=== PATIENT | male | born 1995 | race Caucasian/White ===

== ENCOUNTER 2016-11-29 12:25 | Emergency (ER) | payer SELFPAY ==
[~2016-11-29] VITALS: Ht 182.9 cm; Wt 66.3 kg
[~2016-11-29 12:25] MED LIST: BACT800T5 PO; CEFU1TAB20 PO
[2016-11-29 12:35] VITALS: BP 116/84; PULSE 94; RESP 18; TEMP 98.2; O2SAT 98
--- NOTE | 2016-11-29 13:38 | PD ---
HPI Chief Complaint: Bite or Sting Time Seen by Provider: 13:29 Travel History International Travel<30 days: No Contact w/Intl Traveler<30days: No Traveled to known affect area: No History of Present Illness HPI 21-year-old male presents to the ED for evaluation 3 day history of pain, redness and swelling of the left elbow. Gradual onset. Patient endorses subjective fevers, has not measured temperature at home. He denies numbness, tingling, weakness, limited just to range of motion of the extremity. He denies previous history of MRSA. Denies chronic health problems, takes no daily medications. NKDA. PFSH Past Medical History Asthma: Yes Cancer: No Cardiovascular Problems: No Cystic Fibrosis: No Developmental Delay: No Diabetes: No Diminished Hearing: No Gastrointestinal Disorders: No Genitourinary: No Headaches: No Heparin Induced Thrombocytopen: No Musculoskeletal: No Neurologic: No Psychiatric: No Respiratory: Yes Immunizations Current: Yes Seizures: No Sickle Cell Disease: No Sleep Apnea: No PNEUMOCCOCAL Vaccine (Year): 1 Past Surgical History Tonsillectomy: Yes (T & A) Other Surgery: Yes (Tonsilectomy) Social History Alcohol Use: No (DENIES) Tobacco Use: No (FORMER) Substance Use: Yes (DENIES AT PRESENT) Allergies-Medications (Allergen,Severity, Reaction): Coded Allergies: Penicillin (Verified Allergy, Severe, ALL OF FAMILY IS ALLERGIC, 11/29/16) Reported Meds & Prescriptions Reported Meds & Active Scripts Active Ibuprofen 800 Mg Tab 800 Mg PO Q8H PRN Clindamycin (Clindamycin HCl) 300 Mg Cap 300 Mg PO TID Review of Systems Except as stated in HPI: all other systems reviewed are Neg Physical Exam Narrative GENERAL: Well-nourished, well-developed white male in no acute distress. SKIN: Warm and dry. SKIN: There is an indurated area in the left elbow which measures about 4 cm in diameter. It is fluctuant but there is no pointing or drainage. There is a zone of inflammation around it but no lymphangitis. HEAD: Normocephalic. EYES: No scleral icterus. No injection or drainage. NECK: Supple, trachea midline. No JVD or lymphadenopathy. CARDIOVASCULAR: Regular rate and rhythm without murmurs, gallops, or rubs. RESPIRATORY: Breath sounds equal bilaterally. No accessory muscle use. GASTROINTESTINAL: Abdomen soft, non-tender, nondistended. MUSCULOSKELETAL: No cyanosis, or edema. No limitations to motion or deficits of strength of the left upper extremity. Neurovascularly intact. BACK: Nontender without obvious deformity. No CVA tenderness. Data Data Last Documented VS Vital Signs Date Time Temp Pulse Resp B/P Pulse Ox O2 Delivery O2 Flow Rate FiO2 11/29/16 14:39 88 16 99 11/29/16 12:35 98.2 116/84 Orders Abscess Culture And Gram Stain (11/29/16 13:38) Lidocai-Epi 1%-1:100,000 Inj (Xylocaine- (11/29/16 13:45) Clindamycin Inj (Cleocin Inj) (11/29/16 13:45) Ibuprofen (Motrin) (11/29/16 13:45) MDM Medical Decision Making Medical Screen Exam Complete: Yes Emergency Medical Condition: Yes Differential Diagnosis Folliculitis versus abscess versus cellulitis versus sepsis versus other Narrative Course 21-year-old male presents to the ED for evaluation 3 day history of pain, redness and swelling of the left elbow. Gradual onset. Patient endorses subjective fevers, has not measured temperature at home. He denies numbness, tingling, weakness, limited just to range of motion of the extremity. He denies previous history of MRSA. Vitals reviewed. Physical exam consistent with abscess of the medial aspect of the right elbow. Abscess I&D was performed. Please see my procedure note for details. Patient was administered 600 mg clindamycin IM and 800 mg ibuprofen. He is prescribed clindamycin 300 mg 3 times a day 7 days and a short course of anti-inflammatory medications. He is instructed to return in 2 days for packing removal and wound evaluation, take antibiotics as prescribed, follow up with the primary care provider. He indicated understanding of the instructions and is amenable to plan of care. He stable and discharged home. Diagnosis Primary Impression: Abscess Referrals: Primary Care Physician Patient Instructions: Abscess Incision and Drainage (ED), General Instructions Additional Instructions: Rest, hydrate. Do not change the dressing unless it becomes soiled or wet. . You may bathe normally. Do not submerge the wound. Return to the ED in 2 days for packing removal and evaluation of wound. Take the antibiotics as they are prescribed, even if your symptoms resolved during the course of treatment. Utilize 800 mg ibuprofen as prescribed, as needed for pain. Return to the ED for any urgent or emergent medical condition. Med/Other Pt SpecificInfo: Prescription(s) given Scripts Ibuprofen 800 Mg [id number] Mg PO Q8H PRN (Pain/Inflammation) #15 TAB Ref 0 Prov:Chad Frasuto MD 11/29/16 Clindamycin 300 Mg [id number] Mg PO TID #21 CAP Ref 0 Prov:Chad Frausto MD 11/29/16 Disposition: 01 DISCHARGE HOME Condition: Stable Heather Fuller Nov 29, 2016 13:38
[2016-11-29] MEDS ORDERED: CLIN1CAP6 PO (13:42)
[2016-11-29] MEDS ORDERED: IBUP800T23 PO (13:42)
[2016-11-29] MEDS ORDERED: CLINDAMYCIN PHOS 600 MG/4 ML VIAL IM ONE (13:45)
[2016-11-29] MEDS ORDERED: IBUPROFEN 800 MG TAB PO ONE (13:45)
[2016-11-29] MEDS ORDERED: LIDOCAINE 1%/EPINEPHrine 1:100,000 SOLN 20 ML VIAL INFIL ONE (13:45)
[2016-11-29 14:38] VITALS: RESP 16
== END 2016-11-29 14:40 | disposition home or self-care (01) ==
LOC: PHED 12:25 → PHEFT 14:40
DX: L02.414 Cutaneous abscess of left upper limb (principal); B95.61 Methicillin susceptible Staphylococcus aureus infection as the cause of diseases classified elsewhere
CPT/HCPCS: 10061; 86403; 87070; 87186; 87205; 96372

== ENCOUNTER 2016-12-01 13:21 | Emergency (ER) | payer SELFPAY ==
[~2016-12-01] VITALS: Ht 180.3 cm; Wt 66.0 kg
[~2016-12-01 13:21] MED LIST changes: -BACT800T5 PO; -CEFU1TAB20 PO; +CLIN1CAP6 PO; +IBUP800T23 PO
[2016-12-01 13:28] VITALS: BP 136/60; PULSE 76; RESP 16; TEMP 98.5; O2SAT 99
--- NOTE | 2016-12-01 14:03 | PD ---
HPI Chief Complaint: Wound/Suture/Staple Re-Check Time Seen by Provider: 14:02 Travel History International Travel<30 days: No Contact w/Intl Traveler<30days: No Traveled to known affect area: No History of Present Illness HPI 21-year-old male that presents to the ED for evaluation of wound recheck. Patient was seen here 2 days ago for evaluation of the abscess on his left elbow. Patient having seizures and drainage. Patient has an compliant with medications. Patient had packing in place and was told to come here. He states that for the most part the symptoms seem to be improving but he came here for recheck as he was told to do this. He states that his pain currently is 4 out of 10. Patient denies any fevers chills or sweats. No new symptoms. Pain stays mainly on the area of the abscess. Allergy to penicillin. States compliance with medications given. PFSH Past Medical History Asthma: Yes Cancer: No Cardiovascular Problems: No Cystic Fibrosis: No Developmental Delay: No Diabetes: No Diminished Hearing: No Gastrointestinal Disorders: No Genitourinary: No Headaches: No Heparin Induced Thrombocytopen: No Musculoskeletal: No Neurologic: No Psychiatric: No Respiratory: Yes (asthma) Immunizations Current: Yes Seizures: No Sickle Cell Disease: No Sleep Apnea: No PNEUMOCCOCAL Vaccine (Year): 1 Past Surgical History Tonsillectomy: Yes (T & A) Other Surgery: Yes (Tonsilectomy) Social History Alcohol Use: No (DENIES) Tobacco Use: No (FORMER) Substance Use: Yes (DENIES AT PRESENT) Allergies-Medications (Allergen,Severity, Reaction): Coded Allergies: Penicillin (Verified Allergy, Severe, ALL OF FAMILY IS ALLERGIC, 12/01/16) Reported Meds & Prescriptions Reported Meds & Active Scripts Active Ibuprofen 800 Mg Tab 800 Mg PO Q8H PRN Clindamycin (Clindamycin HCl) 300 Mg Cap 300 Mg PO TID Review of Systems Except as stated in HPI: all other systems reviewed are Neg Physical Exam Narrative GENERAL: SKIN: Warm and dry. HEAD: Atraumatic. Normocephalic. EYES: Pupils equal and round. No scleral icterus. No injection or drainage. ENT: No nasal bleeding or discharge. Mucous membranes pink and moist. Tongue is midline. No uvula deviation. NECK: Trachea midline. No JVD. CARDIOVASCULAR: Regular rate and rhythm. RESPIRATORY: No accessory muscle use. Clear to auscultation. Breath sounds equal bilaterally. GASTROINTESTINAL: Abdomen soft, non-tender, nondistended. Hepatic and splenic margins not palpable. MUSCULOSKELETAL: Extremities without clubbing, cyanosis, or edema. No obvious deformities. Full range of motion of the upper extremities bilaterally. Full range of motion of left upper extremity. Patient has a open abscess that was drained with packing in place on the left medial elbow. Yellow discharge coming out of it. Slightly tender to touch. Some erythema noted. per patient improved. 2+ pulses bilaterally. Neurovascular intact. NEUROLOGICAL: Awake and alert. No obvious cranial nerve deficits. Motor grossly within normal limits. Five out of 5 muscle strength in the arms and legs. Normal speech. PSYCHIATRIC: Appropriate mood and affect; insight and judgment normal. Data Data Last Documented VS Vital Signs Date Time Temp Pulse Resp B/P Pulse Ox O2 Delivery O2 Flow Rate FiO2 12/01/16 13:28 98.5 76 16 136/60 99 MDM Medical Decision Making Medical Screen Exam Complete: Yes Emergency Medical Condition: Yes Medical Record Reviewed: Yes Differential Diagnosis Abscess versus wound care versus packing removal Narrative Course 21-year-old male that presents to the ED for evaluation of abscess. Patient was properly examined and was found to have signs and symptoms consistent with wound recheck. Packing was removed by me. Patient tolerated procedure well. New dressing was applied. No new packing recommend at this time. Patient does have some drainage still. I recommend that he continue taking antibiotics. Follow with PCP. See ED for any worsening symptoms. Diagnosis Primary Impression: Abscess Patient Instructions: General Instructions Additional Instructions: Continue medications prescribed to you on your last visit. See ED for worsening symptoms. Warm compresses. Recheck in 7 days if no improvement at all, otherwise follow-up with your doctor. Med/Other Pt SpecificInfo: No Change to Meds, Wound Care Disposition: DISCHARGE HOME Condition: Stable Luis Miguel Matson Dec 01, 2016 14:03
== END 2016-12-01 14:14 | disposition home or self-care (01) ==
LOC: PHEFT 13:21
DX: L02.414 Cutaneous abscess of left upper limb (principal); Z87.09 Personal history of other diseases of the respiratory system; Z87.891 Personal history of nicotine dependence
CPT/HCPCS: 99281

== ENCOUNTER 2017-01-27 11:48 | Emergency (ER) | payer SELFPAY ==
[~2017-01-27] VITALS: Ht 180.3 cm; Wt 62.0 kg
[2017-01-27 11:54] VITALS: BP 125/82; PULSE 80; RESP 16; TEMP 98.3; O2SAT 98
--- NOTE | 2017-01-27 12:28 | PD ---
HPI Chief Complaint: Wound/Suture/Staple Re-Check Time Seen by Provider: 12:05 Travel History International Travel<30 days: No Contact w/Intl Traveler<30days: No Traveled to known affect area: No History of Present Illness HPI 21 year-old male presents to the emergency room requesting a work note to clear him of his left elbow infection that he had 2 months ago. Patient had an abscess on the left elbow which grew out a staph infection for which he was treated with clindamycin. He was compliant with medication and states he has had no recurrence of symptoms since then. He just needs a note to go back to work that states his infection and symptoms are resolved and he is able to work. History Past Medical Histgory Hx Cancer: No Social History Alcohol Use: No (DENIES) Tobacco Use: No (FORMER) Allergies-Medications (Allergen,Severity, Reaction): Coded Allergies: Penicillin (Verified Allergy, Severe, ALL OF FAMILY IS ALLERGIC, 01/27/17) Reported Meds & Prescriptions Reported Meds & Active Scripts Active No Active Prescriptions or Reported Medications Review of Systems Except as stated in HPI: all other systems reviewed are Neg Physical Exam Narrative GENERAL: Well-nourished, well-developed male in no acute distress. Afebrile. Ambulatory. SKIN: Focused skin assessment warm/dry. No erythema, ecchymosis, or edema of the left elbow. There is a small scab that is almost healed without drainage. HEAD: Normocephalic. EYES: No scleral icterus. No injection or drainage. NECK: Supple, trachea midline. No JVD or lymphadenopathy. CARDIOVASCULAR: Regular rate and rhythm without murmurs, gallops, or rubs. RESPIRATORY: Breath sounds equal bilaterally. No accessory muscle use. MUSCULOSKELETAL: No cyanosis, or edema. 2+ radial pulse and full range of motion of the left upper extremity. Data Data Last Documented VS Vital Signs Date Time Temp Pulse Resp B/P Pulse Ox O2 Delivery O2 Flow Rate FiO2 01/27/17 11:54 98.3 80 16 125/82 98 MDM Medical Screen Exam Complete: Yes Emergency Medical Condition: No Differential Diagnosis Medical clearance versus infection versus abscess Narrative Course 21 year-old male presents to the emergency room requesting a note to return to work after having a left elbow abscess 2 months ago. Primary Impression: Encounter for medical screening examination Scripts No Active Prescriptions or Reported Meds Disposition: 01 DISCHARGE HOME Condition: Stable Katharine Galvan January 27, 2017 12:28
== END 2017-01-27 12:28 | disposition left against medical advice (07) ==
LOC: PHEFT 11:48
DX: Z51.89 Encounter for other specified aftercare (principal); Z88.0 Allergy status to penicillin; Z87.891 Personal history of nicotine dependence
CPT/HCPCS: 99281

== ENCOUNTER 2017-08-30 11:36 | Emergency (ER) | payer SELFPAY ==
[~2017-08-30] VITALS: Ht 180.3 cm; Wt 70.0 kg
[2017-08-30 11:39] VITALS: BP 141/68; PULSE 89; RESP 16; TEMP 98.5; O2SAT 98
[2017-08-30] MEDS ORDERED: LIDOCAINE HCL 1% 50 ML VIAL INFIL ONE (12:30)
--- NOTE | 2017-08-30 12:55 | PD ---
HPI Chief Complaint: Skin Problem Time Seen by Provider: 12:26 Travel History International Travel<30 days: No Contact w/Intl Traveler<30days: No Traveled to known affect area: No History of Present Illness HPI 22-year-old male patient presents to the ER today with several days' history of right buttocks area pain, swelling, tenderness getting worse in the last few days. He denies any significant abdominal pain, pain with bowel movements, fevers, or any other symptoms. Modifying Factors: None Associated Signs & Symptoms: Buttocks area pain, swelling Risk Factors: None PFSH Past Medical History Asthma: Yes Cancer: No Cardiovascular Problems: No Cystic Fibrosis: No Developmental Delay: No Diabetes: No Diminished Hearing: No Gastrointestinal Disorders: No Genitourinary: No Headaches: No Heparin Induced Thrombocytopen: No Musculoskeletal: No Neurologic: No Psychiatric: No Respiratory: Yes (asthma) Immunizations Current: Yes Seizures: No Sickle Cell Disease: No Sleep Apnea: No Tetanus Vaccination: Unknown Influenza Vaccination: No PNEUMOCCOCAL Vaccine (Year): 1 Past Surgical History Tonsillectomy: Yes (T & A) Other Surgery: Yes (Tonsilectomy) Social History Alcohol Use: No (DENIES) Tobacco Use: No (FORMER) Substance Use: Yes Allergies-Medications (Allergen,Severity, Reaction): Coded Allergies: penicillin G (Unverified Allergy, Severe, ALL OF FAMILY IS ALLERGIC, 08/30) Reported Meds & Prescriptions Reported Meds & Active Scripts Active No Active Prescriptions or Reported Medications Review of Systems Except as stated in HPI: all other systems reviewed are Neg Physical Exam Narrative GENERAL: Well-developed young male patient currently in mild distress but awake and oriented 3. SKIN: Focused skin assessment warm/dry. HEAD: Atraumatic. Normocephalic. EYES: Pupils equal and round. No scleral icterus. No injection or drainage. ENT: No nasal bleeding or discharge. Mucous membranes pink and moist. NECK: Trachea midline. No JVD. CARDIOVASCULAR: Regular rate and rhythm. No murmur appreciated. RESPIRATORY: No accessory muscle use. Clear to auscultation. Breath sounds equal bilaterally. GASTROINTESTINAL: Abdomen soft, non-tender, nondistended. Hepatic and splenic margins not palpable. RECTAL EXAM: No rectal masses or tenderness, stool is brown. There is a area of induration, redness, tenderness and fluctuance in the right buttocks area. Area measures about 3 cm. MUSCULOSKELETAL: No obvious deformities. No clubbing. No cyanosis. No edema. NEUROLOGICAL: Awake and alert. No obvious cranial nerve deficits. Motor grossly within normal limits. Normal speech. PSYCHIATRIC: Appropriate mood and affect; insight and judgment normal. Data Data Last Documented VS Vital Signs Date Time Temp Pulse Resp B/P (MAP) Pulse Ox O2 Delivery O2 Flow Rate FiO2 08/30/17 11:39 98.5 89 16 141/68 (92) 98 Orders Orders Lidocaine 1% Inj (50 Ml) (Xylocaine 1% I (08/30/17 12:30) Ed Discharge Order (08/30/17 13:23) [facility] Medical Decision Making Medical Screen Exam Complete: Yes Emergency Medical Condition: Yes Medical Record Reviewed: Yes Differential Diagnosis Right buttocks pain, swelling, fluctuance: Cellulitis versus perirectal abscess versus buttocks abscess Narrative Course Buttocks abscess was I&D in the ER without issues. Wound care instructions given. Return in 2 days for packing removal. The plan was discussed with patient and grandmother and they state understanding. Procedures Procedure Narrative INCISION AND DRAINAGE OF ABSCESS: The area was prepped and was sterilely draped. A subcutaneous wheal of % Xylocaine 1% with a total number 3 mL was used to anesthetize the area. The area was properly anesthetized. A number small scalpel was used to make a 2-cm incision across the area of the abscess. The abscess was drained an irrigated with normal saline. Half inch iodoform packing was placed in the wound. Sterile dressing applied. Patient advised to have packing removed in two days. Diagnosis Primary Impression: Abscess of buttock Med/Other Pt SpecificInfo: Prescription(s) given Scripts Ibuprofen (Ibuprofen) 600 Mg Tab 600 MG PO Q6H Y for Pain/Inflammation, #20 TAB 0 Refills Prov: Rosalie Ruiz MD 08/30/17 Disposition: 01 DISCHARGE HOME Condition: Stable Rosalie Ruiz MD Aug 30, 2017 12:55
[2017-08-30] MEDS ORDERED: IBUP-232 PO (13:26)
== END 2017-08-30 13:48 | disposition home or self-care (01) ==
LOC: PHED 11:36
DX: L02.31 Cutaneous abscess of buttock (principal); J45.909 Unspecified asthma, uncomplicated
CPT/HCPCS: 10061

== ENCOUNTER 2017-09-01 13:00 | Emergency (ER) | payer SELFPAY ==
[~2017-09-01] VITALS: Ht 177.8 cm; Wt 70.3 kg
[~2017-09-01 13:00] MED LIST changes: -CLIN1CAP6 PO; +IBUP-232 PO; -IBUP800T23 PO
[2017-09-01 13:05] VITALS: BP 117/59; PULSE 73; RESP 16; TEMP 98.2; O2SAT 100
--- NOTE | 2017-09-01 15:12 | PD ---
HPI Chief Complaint: Wound/Suture/Staple Re-Check Time Seen by Provider: 15:01 Travel History International Travel<30 days: No Contact w/Intl Traveler<30days: No Traveled to known affect area: No History of Present Illness HPI 22-year-old male presents to the ED for evaluation of abscess I&D. Patient denies fever, chills, worsening of pain. He's been taking ibuprofen as prescribed. PFSH Past Medical History Asthma: Yes Cancer: No Cardiovascular Problems: No Cystic Fibrosis: No Developmental Delay: No Diabetes: No Diminished Hearing: No Gastrointestinal Disorders: No Genitourinary: No Headaches: No Heparin Induced Thrombocytopen: No Musculoskeletal: No Neurologic: No Psychiatric: No Respiratory: Yes (asthma) Immunizations Current: Yes Seizures: No Sickle Cell Disease: No Sleep Apnea: No PNEUMOCCOCAL Vaccine (Year): 1 ?: Not Past Surgical History Tonsillectomy: Yes (T & A) Other Surgery: Yes (Tonsilectomy) Social History Alcohol Use: No (DENIES) Tobacco Use: No (FORMER) Substance Use: Yes Allergies-Medications (Allergen,Severity, Reaction): Coded Allergies: penicillin G (Unverified Allergy, Severe, ALL OF FAMILY IS ALLERGIC, 08/30) Reported Meds & Prescriptions Reported Meds & Active Scripts Active Ibuprofen 600 Mg Tab 600 Mg PO Q6H PRN Review of Systems Except as stated in HPI: all other systems reviewed are Neg Physical Exam Narrative GENERAL: Well-nourished, well-developed patient. SKIN: Focused skin assessment warm/dry. SKIN: There is an indurated area in the right buttock which measures about 3 cm in diameter. There is 1.25 cm incision over the area. Packing was removed. No active bleeding. There is a small area of local inflammation. HEAD: Normocephalic. EYES: No scleral icterus. No injection or drainage. NECK: Supple, trachea midline. No JVD or lymphadenopathy. CARDIOVASCULAR: Regular rate and rhythm without murmurs, gallops, or rubs. RESPIRATORY: Breath sounds equal bilaterally. No accessory muscle use. GASTROINTESTINAL: Abdomen soft, non-tender, nondistended. MUSCULOSKELETAL: No cyanosis, or edema. BACK: Nontender without obvious deformity. No CVA tenderness. Data Data Last Documented VS Vital Signs Date Time Temp Pulse Resp B/P (MAP) Pulse Ox O2 Delivery O2 Flow Rate FiO2 09/01/17 13:05 98.2 73 16 117/59 (78) 100 MDM Medical Decision Making Medical Screen Exam Complete: Yes Emergency Medical Condition: Yes Differential Diagnosis Recheck of abscess versus cellulitis versus I&D versus other Narrative Course 22-year-old male presents to the ED for packing removal and abscess recheck following incision and drainage. I reviewed the patient's records from previous visit. On exam there is a 1.25 cm incision over a abscess of the right upper buttock. Packing was removed. No bleeding or discharge was noted. Clean and dry dressing was applied. Patient was instructed to keep the wound clean and dry, avoid squeezing the area, take pain medications as prescribed, follow up with a primary care provider. He is stable and discharged home. Diagnosis Primary Impression: Encounter for recheck of abscess following incision and drainage Referrals: Primary Care Physician Patient Instructions: Abscess Follow-up (ED), General Instructions Additional Instructions: Keep the wound clean, dry and covered. DO NOT SQUEEZE THE AREA. Continue with ibuprofen every 6-8 hours as needed for pain. Continue with warm compresses 3 or 4 times a day, this will draw anything left in the abscess to the surface. Follow-up with your primary care provider. Return to the ED for worsening symptoms or any urgent or emergent medical condition. Disposition: 01 DISCHARGE HOME Condition: Stable Heather Fuller Sep 01, 2017 15:12
== END 2017-09-01 15:48 | disposition home or self-care (01) ==
LOC: PHED 13:00 → PHEFT 15:48
DX: Z48.00 Encounter for change or removal of nonsurgical wound dressing (principal)
CPT/HCPCS: 99281